=== PATIENT | male | born 1975 | race Caucasian/White ===

== ENCOUNTER 2023-03-16 22:57 | Emergency (ER) | payer BC ==
[~2023-03-16] VITALS: Ht 175.3 cm; Wt 83.9 kg
[2023-03-16] MEDS ORDERED: NAPROXEN 500 MG TABLET ONE (23:29)
[2023-03-16] MEDS ORDERED: NAPROXEN 500 MG TABLET PO ONE (23:30)
[2023-03-17] MEDS ORDERED: NAPR-1164 PO
[2023-03-17] MEDS ORDERED: NAPROXEN 500 MG TABLET ONE (00:11)
[2023-03-17 00:12] VITALS: BP 126/86; O2SAT 98
[2023-03-17] MEDS ORDERED: NAPROXEN 500 MG TABLET PO ONE (00:15)
== END 2023-03-17 00:13 | disposition home or self-care (01) ==
LOC: ER 23:00
DX: R09.1 Pleurisy (principal); Z79.899 Other long term (current) drug therapy; Z20.822 Contact with and (suspected) exposure to COVID-19
CPT/HCPCS: 71045; 93005; A4606; A4663